=== PATIENT | female | born 1990 | race Caucasian/White ===

== ENCOUNTER → 2019-07-27 10:27 | Outpatient (CLI) | payer SELFPAY | PROVIDERS: Visit Provider Physician Assistant | DX: R30.0 Dysuria (principal) | CPT/HCPCS: 87077; 87086; 87186 ==

== ENCOUNTER 2019-07-29 12:07 | Emergency (ER) | payer SELFPAY ==
[2019-07-29 12:15] VITALS: BP 130/83; PULSE 102; RESP 18; TEMP 36.4; O2SAT 100
--- NOTE | 2019-07-29 13:52 | ED.FEMALEGU ---
HPI - Female Genitourinary General Chief complaint: Urogenital-Female Stated complaint: UTI, vomiting Time Seen by Provider: 07/29/19 13:51 Source: patient and old records reviewed Mode of arrival: Ambulatory Limitations: no limitations History of Present Illness HPI Narrative: Patient is a 29-year-old female who was diagnosed with UTI 2 days ago placed on Levaquin and started vomiting today. She feels nauseous unable to keep her medication down. Her urine did grow E coli which is pansensitive to all antibiotics. She says she did throw up some coffee-ground emesis and was black she denies eating any food. She continues to have back pain. He actually said 2 nights ago she had severe left-sided back pain which radiated around to her abdomen. Since then the back pain has subsided but she still feels nauseous. Related Data Home Medications Medication Instructions Recorded Confirmed acetaminophen 325 mg PO PRN PRN 07/29/19 07/29/19 ibuprofen 200 mg PO PRN PRN 07/29/19 07/29/19 Previous Rx's Medication Instructions Recorded levofloxacin 250 mg tablet 250 mg PO DAILY 10 Days #10 tab 07/27/19 ondansetron 4 mg disintegrating 4 mg PO BID PRN #14 tab 07/27/19 tablet Allergies Allergy/AdvReac Type Severity Reaction Status Date / Time No Known Drug Allergies Allergy Verified 07/29/19 12:18 Review of Systems Review of Systems Narrative: GENERAL: Denies chills, fatigue, malaise, fever, sweats, travel HEENT: Denies sinus pain, ear pain, sore throat, difficulty swallowing, neck pain RESPIRATORY: Denies dyspnea, cough, wheezing, hemoptysis, sputum. CARDIOVASCULAR: Denies chest pain, palpitations, orthopnea, edema GASTROINTESTINAL: Denies nausea, vomiting, abdominal pain, diarrhea, constipation, melena. : See HPI MUSCULOSKELETAL: Denies weakness, joint pain, or bony pain SKIN: No rash, no erythema, no pruritus NEUROLOGIC: Denies weakness, dizziness, headache, numbness, change in speech, confusion PSYCHIATRIC: No concerning psychosocial issues. 12 point review of systems is negative except for those stated above and HPI Patient History Medical History Patient denies significant medical history (Acute) alcohol intake frequency: holidays/special occasions only Substance Use Type: does not use Exam Initial Vital Signs Initial Vital Signs: Vital Signs Temperature 97.6 F 07/29/19 12:15 Pulse Rate 102 H 07/29/19 12:15 Respiratory Rate 18 07/29/19 12:15 Blood Pressure 130/83 07/29/19 12:15 Pulse Oximetry 100 07/29/19 12:15 GENERAL: Well-appearing, well-nourished and in no acute distress. HEENT: Head atraumatic,EOMI, pupils reactive, face symmetric, moist mucous membranes CARDIOVASCULAR: Regular rate and rhythm without murmurs, rubs or gallops. RESPIRATORY: Breath sounds equal bilaterally, no wheezes rales or rhonchi. ABDOMEN: Soft, nontender. Normoactive bowel sounds all 4 quadrants. No guarding or rebound. : No CVA tenderness EXTREMITIES: Normal range of motion, no clubbing or edema. Neurovascularly intact NEUROLOGICAL: Alert and oriented x4.Normal gait and speech. SKIN: Warm, dry, no laceration, no petechiae, no rashes or lesions. Course Orders Ordered: ED Orders 07/29/19 14:27 Complete Blood Count AUTO DIFF Stat Comprehensive Metabolic Panel Stat 07/29/19 14:57 CT kidney ureter bladder (KUB) Stat 07/29/19 15:20 Ictotest Urine Stat Urinalysis and Microscopic Stat Urine Culture Stat Discontinued Medications Sodium Chloride (Normal Saline 0.9%) 1,000 mls @ 1,000 mls/hr IV BOLUS ONE Stop: 07/29/19 14:24 Last Infusion: 07/29/19 15:45 Dose: 0 mls/hr Documented by: Admin: 07/29/19 14:30 Dose: 1,000 mls/hr Documented by: REVA Sodium Chloride (Normal Saline 0.9%) 1,000 mls @ 1,000 mls/hr IV BOLUS ONE Stop: 07/29/19 14:58 Last Infusion: 07/29/19 16:55 Dose: 0 mls/hr Documented by: Admin: 07/29/19 15:55 Dose: 1,000 mls/hr Documented by: REVA Ceftriaxone Sodium/Dextrose (Rocephin) 1 gm in 50 mls @ 100 mls/hr IV NOW ONE Stop: 07/29/19 15:22 Last Infusion: 07/29/19 15:55 Dose: 0 mls/hr Documented by: Admin: 07/29/19 15:17 Dose: 100 mls/hr Documented by: REVA Ondansetron HCl (Zofran) 4 mg IV NOW ONE Stop: 07/29/19 13:26 Last Admin: 07/29/19 14:30 Dose: 4 mg Documented by: REVA Ondansetron HCl (Zofran) 4 mg IV NOW ONE Stop: 07/29/19 17:41 Last Admin: 07/29/19 17:44 Dose: 4 mg Documented by: REVA Pantoprazole Sodium (Protonix) 40 mg IV NOW ONE Stop: 07/29/19 14:00 Last Admin: 07/29/19 14:31 Dose: 40 mg Documented by: REVA Vital Signs Vital signs: Vital Signs - 8 hr 07/29/19 12:15 07/29/19 14:00 07/29/19 15:00 Temperature 97.6 F Pulse Rate 102 H 95 H 74 Respiratory Rate 18 16 16 Blood Pressure 130/83 Blood Pressure [Right Arm] 114/80 123/88 Pulse Oximetry 100 99 98 07/29/19 16:00 07/29/19 17:00 Temperature Pulse Rate 69 79 Respiratory Rate 16 16 Blood Pressure Blood Pressure [Right Arm] 141/81 H 123/70 Pulse Oximetry 99 98 MDM - Female Genitourinary Lab Data Attestation: I reviewed the patient's lab results. Result diagrams: 07/29/19 14:27 07/29/19 14:27 Labs: Lab Results 07/29/19 07/29/19 07/29/19 Range/Units 14:27 14:27 15:20 WBC 10.4 (4.5-11.0) X10^3/uL RBC 4.20 (4.0-5.2) X10^6/uL Hgb 11.9 L (12.0-16.0) g/dL Hct 35.2 L (36-46) % MCV 83.8 (80-100) fL MCH 28.3 (26-34) PG MCHC 33.8 (30-36) % RDW 14.6 (11.6-14.8) % Plt Count 162 (150-400) X10^3/uL Neut % (Auto) 86.8 H (50-75) % Lymph % (Auto) 6.3 L (25-40) % [place] % (Auto) 6.3 (3-14) % Eos % (Auto) 0.4 L (2-4) % Baso % (Auto) 0.2 (0-2) % Neut # (Auto) 9000 H (7493-2780) /uL Lymph # (Auto) 600 L (4295-4109) /uL [place] # (Auto) 600 (0-900) /uL Eos # (Auto) 0 (0-450) /uL Baso # (Auto) 0 (0-100) /uL Sodium 135 L (137-145) mmol/L Potassium 4.2 (3.4-5.1) mmol/L Chloride 97 L (98-107) mmol/L Carbon Dioxide 23 (22-32) mmol/L BUN 49 H (7-17) mg/dL Creatinine 4.00 H (0.52-1.04) mg/dL Estimated GFR 13.1 L (>60) mL/min BUN/Creatinine Ratio 12.3 (6-22) Glucose 99 (70-100) mg/dL Calcium 9.5 (8.4-10.2) mg/dL Total Bilirubin 0.7 (0.2-1.3) mg/dL AST 20 (14-36) IU/L ALT 19 (<35) IU/L Alkaline Phosphatase 84 (38-126) U/L Total Protein 7.3 (6.3-8.2) g/dL Albumin 4.0 (3.5-5.0) g/dL Globulin 3.3 (1.7-4.1) g/dL Albumin/Globulin Ratio 1.2 (1.0-2.8) Urine Color Red Urine Appearance Cloudy Urine pH 5.5 (4.5-8.0) Ur Specific [place] 1.010 (1.000-1.035) Urine Protein 3+ H (Negative) Urine Glucose (UA) Negative (Negative) g/dL Urine Ketones Trace H (NEGATIVE) Urine Occult Blood 3+ H (Negative) Urine Nitrate Negative (Negative) Urine Bilirubin 1+ H (NEGATIVE) Urine Ictotest Negative (Negative) Urine Urobilinogen 0.2 (0.2) E.U./dL Ur Leukocyte Esterase Trace H (NEGATIVE) Urine RBC 30-100/hpf H (0-5/HPF) Urine WBC 10-30/hpf H (0-5/HPF) Amorphous Sediment 2+ Urine Bacteria None seen (None) Ur Culture Indicated? Specimen cultured Point of Care Testing Test Results Negative Imaging Data CT scan - abdomen/pelvis: Radiologist's Impression: PROCEDURE: CT KIDNEY URETER BLADDER (KUB) INDICATIONS: kidney failure with possible stone TECHNIQUE: Noncontrast 5 mm thick sections acquired from the diaphragms to the symphysis. 5 mm thick coronal and sagittal reformats were then performed. For radiation dose reduction, the following was used: automated exposure control, adjustment of mA and/or kV according to patient size. COMPARISON: None. FINDINGS: Image quality: Excellent. Lung bases: Lung bases are clear. Heart size is normal. Urinary system: Both kidneys are normal in size. 5 mm nonobstructing right renal calcification, Hounsfield units measuring 383. 12 mm calcification in the left renal pelvis, Hounsfield units measuring 734. Mild to moderate left and minimal to mild right hydronephrosis. Mild left perinephric and periureteral stranding. Both ureters appear non-dilated throughout their expected courses. Bladder wall thickness is normal; no calcified bladder stones. Other solid organs: Liver is enlarged with steatosis. Gallbladder has been removed. Pancreas is normal in contours. Spleen is normal in size. No adrenal nodules. Peritoneum and bowel: Unenhanced bowel loops demonstrate normal wall thickness and caliber. Colonic diverticula are noted. No free fluid or air. Nodes and vessels: No retroperitoneal or mesenteric adenopathy by size criteria. Aorta and inferior vena cava are normal in caliber. Abdominal wall: No ventral hernias. Hiatal hernia. Pelvis: No free pelvic fluid. No inguinal hernias or adenopathy. Bones: No suspicious bony lesions. No vertebral body compression fractures. IMPRESSION: 1. Bilateral hydronephrosis/hydroureter, left greater than right with left renal pelvic calculus. Dictated by: Aubrie Bautista M.D. on 07/29/2019 at 15:36 MDM Narrative Medical decision making narrative: Patient is found have acute kidney injury. CT does reveal large stone on the left side in the renal pelvis. This was likely contributing to her acute renal failure. She has urinated in the emergency department, and received 2 L of IV fluids along with Rocephin. Required any pain medication. Dr. Aleman urology at [facility] in [place] has been updated patient's symptoms test results agrees to consult request admit to hospital Dr. Joiner, hospitalist updated on patient's symptoms test results accepts patient for transfer Patient has remained hemodynamically stable in the emergency department without any need for pain medication in. She is requesting that she not go by ambulance due to self-pay and insurance reasons. She understands the need to go directly to the hospital without eating or drinking Discharge Plan Departure Patient Disposition: [facility] Clinical Impression: Kidney stone on left side Urinary tract infection Qualifiers: Urinary tract infection type: acute cystitis Hematuria presence: with hematuria Qualified Code(s): N30.01 - Acute cystitis with hematuria Renal failure Qualifiers: Renal failure chronicity: acute Acute renal failure type: unspecified Qualified Code(s): N17.9 - Acute kidney failure, unspecified Discharge Date/Time: 07/29/19 17:49 Activity Restrictions/Additional Instructions: GO DIRECTLY TO [facility] IN [place] [address] DO NOT EAT OR DRINK ANYTHING UNTIL YOU ARE EVALUATED BY THE DOCTORS AT THE HOSPITAL You have renal failure, kidney an infection it is imperative that you go directly to the hospital where you will be admitted and cared for This is your choice to go by private vehicle and not by ambulance. Ambulance was offered Prescriptions: No Action levofloxacin 250 mg tablet 250 mg PO DAILY 10 Days Qty: 10 RF: 0 ondansetron 4 mg tablet,disintegrating 4 mg PO BID PRN (Reason: nausea and vomiting) Qty: 14 RF: 0 acetaminophen 325 mg Tablet 325 mg PO PRN PRN (Reason: pain) RF: 0 ibuprofen 200 mg Tablet 200 mg PO PRN PRN (Reason: pain) RF: 0
[2019-07-29 14:00] VITALS: BP 114/80; PULSE 95; RESP 16; O2SAT 99
[2019-07-29] MEDS: SODIUM CHLORIDE 0.9% 1,000 ML 1000 ML IV ×2 (14:30→15:55)
[2019-07-29] MEDS: ONDANSETRON 4 MG/2 ML INJ IV ×2 (14:30→17:44)
[2019-07-29] MEDS: PANTOPRAZOLE 40 MG VIAL IV (14:31)
[2019-07-29 14:35] LABS: Add Manual Diff / Slide Review NO; Basophils Absolute Auto 0 /uL (0-100); Basophils Percent Auto 0.2 % (0-2); Eosinophils Absolute Auto 0 /uL (0-450); Eosinophils Percent Auto 0.4 % (2-4); Hematocrit 35.2 % (36-46); Hemoglobin 11.9 g/dL (12.0-16.0); Lymphocytes Absolute Auto 600 /uL (1100-4500); Lymphocytes Percent Auto 6.3 % (25-40); Mean Corpuscular HGB Conc 33.8 % (30-36); Mean Corpuscular Hemoglobin 28.3 PG (26-34); Mean Corpuscular Volume 83.8 fL (80-100); Monocytes Absolute Auto 600 /uL (0-900); Monocytes Percent Auto 6.3 % (3-14); Neutrophils Absolute Auto 9000 /uL (1500-7000); Neutrophils Percent Auto 86.8 % (50-75); Platelet Count 162 X10^3/uL (150-400); Red Cell Distribution Width 14.6 % (11.6-14.8); White Blood Cell Count 10.4 X10^3/uL (4.5-11.0)
[2019-07-29 14:46] LABS: Alanine Aminotransferase 19 IU/L (<35); Albumin Globulin Ratio 1.2 (1.0-2.8); Alkaline Phosphatase 84 U/L (38-126); Aspartate Aminotransferase 20 IU/L (14-36); BUN Creatinine Ratio 12.3 (6-22); Bilirubin Total 0.7 mg/dL (0.2-1.3); Blood Urea Nitrogen 49 mg/dL (7-17); Calcium 9.5 mg/dL (8.4-10.2); Carbon Dioxide 23 mmol/L (22-32); Chloride 97 mmol/L (98-107); Estimated Glomerular Filt Rate 13.1 mL/min (>60); Globulin 3.3 g/dL (1.7-4.1); Glucose 99 mg/dL (70-100); HEMOLYSIS < 15 (0-50); Potassium 4.2 mmol/L (3.4-5.1); Sodium 135 mmol/L (137-145); Total Protein 7.3 g/dL (6.3-8.2)
--- NOTE | 2019-07-29 14:57 | DI.CT.S_ITS ---
PROCEDURE: CT KIDNEY URETER BLADDER (KUB) INDICATIONS: kidney failure with possible stone TECHNIQUE: Noncontrast 5 mm thick sections acquired from the diaphragms to the symphysis. 5 mm thick coronal and sagittal reformats were then performed. For radiation dose reduction, the following was used: automated exposure control, adjustment of mA and/or kV according to patient size. COMPARISON: None. FINDINGS: Image quality: Excellent. Lung bases: Lung bases are clear. Heart size is normal. Urinary system: Both kidneys are normal in size. 5 mm nonobstructing right renal calcification, Hounsfield units measuring 383. 12 mm calcification in the left renal pelvis, Hounsfield units measuring 734. Mild to moderate left and minimal to mild right hydronephrosis. Mild left perinephric and periureteral stranding. Both ureters appear non-dilated throughout their expected courses. Bladder wall thickness is normal; no calcified bladder stones. Other solid organs: Liver is enlarged with steatosis. Gallbladder has been removed. Pancreas is normal in contours. Spleen is normal in size. No adrenal nodules. Peritoneum and bowel: Unenhanced bowel loops demonstrate normal wall thickness and caliber. Colonic diverticula are noted. No free fluid or air. Nodes and vessels: No retroperitoneal or mesenteric adenopathy by size criteria. Aorta and inferior vena cava are normal in caliber. Abdominal wall: No ventral hernias. Hiatal hernia. Pelvis: No free pelvic fluid. No inguinal hernias or adenopathy. Bones: No suspicious bony lesions. No vertebral body compression fractures. IMPRESSION: 1. Bilateral hydronephrosis/hydroureter, left greater than right with left renal pelvic calculus. Dictated by: Aubrie Bautista M.D. on 07/29/2019 at 15:36 Approved by: Aubrie Bautista M.D. on 07/29/2019 at 15:49
[2019-07-29 15:00] VITALS: BP 123/88; PULSE 74; RESP 16; O2SAT 98
[2019-07-29] MEDS: CEFTRIAXONE 1 GM/50 ML FROZ.PIGGY IV (15:17)
[2019-07-29 15:25] LABS: Bacteria Urine None Seen
[2019-07-29 15:28] LABS: Appearance Urine UA CLOUDY; Bilirubin Urine UA 1+ (NEGATIVE); Color Urine UA RED; Glucose Urine UA NEGATIVE (Negative); Ketones Urine UA TRACE (NEGATIVE); Leukocyte Esterase Urine UA TRACE (NEGATIVE); Nitrite Urine UA NEGATIVE (Negative); Occult Blood Urine UA 3+ (Negative); Protein Urine UA 3+ (Negative); Urobilinogen Urine UA 0.2 E.U./dL (0.2)
[2019-07-29 15:30] LABS: pH Urine UA 5.5 (4.5-8.0)
[2019-07-29 15:37] LABS: Amorphous Sediment Urine 2+; Culture Indicated Urine Specimen Cultured; RBC Urine 30-100/HPF (0-5/HPF); WBC Urine 10-30/HPF (0-5/HPF)
[2019-07-29 15:53] LABS: Ictotest Urine Negative (Negative)
[2019-07-29 16:00] VITALS: BP 141/81; PULSE 69; RESP 16; O2SAT 99
[2019-07-29 17:00] VITALS: BP 123/70; PULSE 79; RESP 16; O2SAT 98
== END 2019-07-29 17:49 | disposition short-term general hospital (02) ==
PROVIDERS: Nurse Practitioner; Emergency Provider Emergency Medicine
DX: N17.9 Acute kidney failure, unspecified (principal); N30.01 Acute cystitis with hematuria
CPT/HCPCS: 36415; 74176; 80053; 81001; 81025; 85025; 87086; 96361; 96365; 96375; 96376; 99284; C9113; J2405